=== PATIENT | male | born 1940 | race Caucasian/White ===

== ENCOUNTER 2024-05-04 15:13 | Emergency (ER) | payer MEDICARE | END 2024-05-04 17:57 | disposition home or self-care (01) | LOC: ERS 15:13 | DX: S51.011A Laceration without foreign body of right elbow, initial encounter (principal); I10 Essential (primary) hypertension; V89.2XXA Person injured in unspecified motor-vehicle accident, traffic, initial encounter; Z79.899 Other long term (current) drug therapy | CPT/HCPCS: 36416; 70450; 72125 ==